=== PATIENT | female | born 1980 | race American Indian/Alaskan Native ===

== ENCOUNTER 2019-08-17 08:46 | Emergency (ER) | payer MEDICAID ==
[2019-08-17 08:51] VITALS: BP 146/102
--- NOTE | 2019-08-17 10:23 | Emergency Department Report ---
ED Headache HPI - General Chief Complaint: Headache Stated Complaint: MIGRAINE Time Seen by Provider: 08/17/19 09:46 Source: patient, RN notes reviewed Exam Limitations: no limitations - History of Present Illness Initial Comments: This is a 39-year-old -Citizen Of [place] female that presents to the emergency room with headache for 2 weeks. Patient states she had surgery to the left eye to repair retinal detachment in April 2019. She followed up with her eye doctor 2 weeks ago for recurrent headaches and she was told to follow-up in the ER yesterday. Patient states she is taken Tylenol with minimal improvement of symptoms. She reports a history of occasional headaches but nothing like this 1 before. She reports constant throbbing frontal pain that is currently 10 out of 10 on pain scale. She also reports photophobia. She denies nausea, vomiting, redness, drainage from eyes, or any recent injury. Timing/Duration: 24 hours Quality: constant, throbbing Head Injury Location: frontal Recent Head Trauma: no recent headache/trauma, occasional headaches Modifying Factors: improves with: exposure to light, medication Associated Symptoms: denies: denies symptoms, confusion, fatigue, facial pain, fever/chills, flushing, loss of consciousness, nausea/vomiting, nasal congestion, nasal drainage, numbness in legs/feet, rash, seizures, sinus infection, stiff neck, vision changes, weakness, other Allergies/Adverse Reactions: Allergies Penicillins Adverse Reaction (Verified 01/26/15 07:59) Shortness of Breath Home Medications: Ambulatory Orders HYDROcodone/APAP 10-325 [[place] 10/325] 1 each PO Q4-6H PRN #16 tablet 01/26/15 cephALEXin [Keflex] 500 mg PO Q8H #30 capsule 01/26/15 predniSONE [Deltasone] 20 mg PO TID #9 tab 01/26/15 Butalb/Acetaminophen/Caffeine [Fioricet 50-300-40 mg CAP] 1 cap PO Q8HR PRN #12 cap 08/17/19 Triamcinolone 0.1% [Kenalog 0.1% CREAM] 1 applic TP TID #1 tube 08/17/19 ED Review of Systems ROS: Stated complaint: MIGRAINE Other details as noted in HPI Constitutional: denies: chills, fever Eyes: denies: eye pain, eye discharge, vision change ENT: denies: ear pain, throat pain Respiratory: denies: cough, shortness of breath, wheezing Cardiovascular: denies: chest pain, palpitations Gastrointestinal: denies: abdominal pain, nausea, diarrhea Musculoskeletal: denies: back pain, joint swelling, arthralgia Skin: denies: rash, lesions Neurological: headache. denies: weakness, paresthesias Psychiatric: denies: anxiety, depression ED Past Medical Hx - Past Medical History Previous Medical History?: Yes Hx Asthma: Yes Additional medical history: HEART MURMUR - Surgical History Past Surgical History?: Yes Additional Surgical History: eye surgery - Social History Smoking Status: Current Every Day Smoker Substance Use Type: Alcohol, Marijuana - Medications Home Medications: Home Medications Medication Instructions Recorded Confirmed Last Taken Type HYDROcodone/APAP 10-325 [[place] 1 each PO Q4-6H PRN #16 tablet 01/26/15 Unknown Rx 10/325] cephALEXin [Keflex] 500 mg PO Q8H #30 capsule 01/26/15 Unknown Rx predniSONE [Deltasone] 20 mg PO TID #9 tab 01/26/15 Unknown Rx Butalb/Acetaminophen/Caffeine 1 cap PO Q8HR PRN #12 cap 08/17/19 Unknown Rx [Fioricet 50-300-40 mg CAP] Triamcinolone 0.1% [Kenalog 0.1% 1 applic TP TID #1 tube 08/17/19 Unknown Rx CREAM] ED Physical Exam - General Limitations: Physical Limitation General appearance: alert, in no apparent distress - Eye Eye exam: Present: EOMI (Left eye). Absent: scleral icterus, conjunctival injection, nystagmus, periorbital swelling, periorbital tenderness Pupils: Present: normal accommodation (Left eye), irregular (right pupil fixed and dilated), other - ENT ENT exam: Present: mucous membranes moist - Respiratory Respiratory exam: Present: normal lung sounds bilaterally. Absent: respiratory distress - Cardiovascular Cardiovascular Exam: Present: regular rate, normal rhythm. Absent: systolic murmur, diastolic murmur, rubs, gallop - GI/Abdominal GI/Abdominal exam: Present: soft, normal bowel sounds. Absent: distended, tenderness, guarding, rebound, rigid - Neurological Exam Neurological exam: Present: alert, oriented X3, normal gait - Psychiatric Psychiatric exam: Present: normal affect, normal mood - Skin Skin exam: Present: warm, dry, intact, normal color, rash (2 cm maculopapular rash to medial cervical back, no erythema, no swelling, no tenderness) ED Course Vital Signs 08/17/19 08:51 Temperature 98.6 F Pulse Rate 89 Respiratory 16 Rate Blood Pressure 146/102 O2 Sat by Pulse 100 Oximetry ED Medical Decision Making - Radiology Data Radiology results: report reviewed CT head/brain wo con INDICATION: Migraine headache. TECHNIQUE: Routine CT head without contrast. All CT scans at this location are performed using CT dose reduction for ALARA by means of automated exposure control. COMPARISON: None. FINDINGS: BRAIN / INTRACRANIAL CONTENTS: No acute hemorrhage, mass effect, midline shift, or hydrocephalus. No appreciable acute large territorial or lacunar infarct. No chronic infarct or focal atrophy. Normal brain volume and ventricular/sulcal size for age. ORBITS: No significant abnormality of visualized orbits. SINUSES / MASTOIDS: No significant abnormality of visualized sinuses and mastoid air cells. ADDITIONAL FINDINGS: None. IMPRESSION: 1. No acute intracranial abnormality. - Medical Decision Making This is a 39 y.o. female that presents with . History of migraines. Patient is stable and was examined by me. CT of head obtained and dictated by radiologist with no acute intracranial findings. Patient states right pupil is fixed and dilated due to implant from cataract. Her school health assistant is monitoring and scheduling up surgery. Given toradol, Reglan, and normal saline 1L bolus while in the ER. Patient reports feeling better. Follow up with PCP and school health assistant. Start Fioricet for migraine headaches. Start Kenalog cream for contact dermatitis to the upper back. No further questions noted by the patient. Discharged home in stable condition. Follow up with PCP in 24-72 hours. Critical care attestation.: If time is entered above; I have spent that time in minutes in the direct care of this critically ill patient, excluding procedure time. ED Disposition Clinical Impression: Pruritic rash Contact dermatitis Qualifiers: Contact dermatitis type: irritant Contact dermatitis trigger: detergents Qualified Code(s): L24.0 - Irritant contact dermatitis due to detergents Migraine Qualifiers: Migraine type: without aura Status migrainosus presence: with status migrainosus Intractability: not intractable Qualified Code(s): G43.001 - Migraine without aura, not intractable, with status migrainosus Disposition: - TO HOME OR SELFCARE Is pt being admited?: No Condition: Stable Instructions: Migraine Headache (ED), Contact Dermatitis (ED) Additional Instructions: Take medication at start of headache. Moderate caffeine intake. Eat at scheduled times or 3 meals a day with snacks. Follow up with primary care provider in 24-72 hours. Prescriptions: Butalb/Acetaminophen/Caffeine [Fioricet 50-300-40 mg CAP] 1 cap PO Q8HR PRN #12 cap PRN Reason: Migraine Headache Triamcinolone 0.1% [Kenalog 0.1% CREAM] 1 applic TP TID #1 tube Referrals: [facility] [Outside] - 3-5 Days [facility] [Outside] - 3-5 Days [facility] [Outside] - 3-5 Days EVIN ASHLEY MD [Staff Physician] - 3-5 Days Forms: Work/School Release Form(ED) Time of Disposition: 11:41
[2019-08-17] MEDS ORDERED: KETOROLAC 30 MG/1 ML INJ IV ONE (10:26)
[2019-08-17] MEDS ORDERED: METOCLOPRAMIDE 10 MG/2 ML INJ IV ONE (10:26)
[2019-08-17] MEDS ORDERED: SODIUM CHLORIDE 0.9% 1000 ML 1,000 ML IV ONE (10:26)
--- NOTE | 2019-08-17 11:25 | Cat Scan Report ---
CT head/brain wo con INDICATION: Migraine headache. TECHNIQUE: Routine CT head without contrast. All CT scans at this location are performed using CT dos e reduction for ALARA by means of automated exposure control. COMPARISON: None. FINDINGS: BRAIN / INTRACRANIAL CONTENTS: No acute hemorrhage, mass effect, midline shift, or hydrocephalus. No appreciable acute large territorial or lacunar infarct. No chronic infarct or focal atrophy. Normal b rain volume and ventricular/sulcal size for age. ORBITS: No significant abnormality of visualized orbits. SINUSES / MASTOIDS: No significant abnormality of visualized sinuses and mastoid air cells. ADDITIONAL FINDINGS: None. IMPRESSION: 1. No acute intracranial abnormality. Signer Name: Anthony Hannon MD Signed: 08/17/2019 11:21 AM Workstation Name: [id number]
== END 2019-08-17 11:52 | disposition home or self-care (01) ==
LOC: ED 08:46
DX: G43.909 Migraine, unspecified, not intractable, without status migrainosus (principal); L29.9 Pruritus, unspecified; L25.9 Unspecified contact dermatitis, unspecified cause; J45.909 Unspecified asthma, uncomplicated; F17.200 Nicotine dependence, unspecified, uncomplicated; F10.10 Alcohol abuse, uncomplicated; F12.10 Cannabis abuse, uncomplicated; Z79.899 Other long term (current) drug therapy; Z98.890 Other specified postprocedural states; Z88.0 Allergy status to penicillin
CPT/HCPCS: 70450; 96374; 96375; 99283; J1885; J2765; J7030